=== PATIENT | female | born 1950 | race Two or more races ===

== ENCOUNTER 2017-10-19 13:22 | Outpatient (CLI) | payer OTHER ==
[~2017-10-19 13:22] MED LIST: ACTONEL5 MG PO; AVALIDE 300-12.1 TA1 PO; CALAN80 MG PO; CALCIO DEL MAR500 MG PO; GABAPENTIN100 MG PO; GLUCOPHAGE XR500 MG PO; LIPITOR20 MG PO; PLAVIX75 MG PO; SINGULAIR4 MG PO; SYNTHROID50 MCG PO; ZOCOR5 MG PO
== END 2017-10-19 17:00 | disposition home or self-care (01) ==
LOC: RAD 13:22
DX: M25.562 Pain in left knee (principal)

== ENCOUNTER 2017-11-04 10:50 | Outpatient (CLI) | payer OTHER | END 2017-11-04 10:57 | disposition home or self-care (01) | LOC: RAD 501 10:50 | DX: M25.572 Pain in left ankle and joints of left foot (principal) ==

== ENCOUNTER 2018-05-05 10:17 | Emergency (ER) | payer OTHER ==
[~2018-05-05] VITALS: Ht 180.3 cm; Wt 93.9 kg
== END 2018-05-05 15:37 | disposition home or self-care (01) ==
LOC: ER 10:17
DX: B34.9 Viral infection, unspecified (principal); E11.65 Type 2 diabetes mellitus with hyperglycemia; J11.1 Influenza due to unidentified influenza virus with other respiratory manifestations

== ENCOUNTER 2018-07-14 07:16 | Outpatient (CLI) | payer OTHER | END 2018-07-14 07:40 | disposition home or self-care (01) | LOC: NUCLEAR 07:16 | DX: I20.0 Unstable angina (principal); I11.9 Hypertensive heart disease without heart failure; E78.2 Mixed hyperlipidemia | CPT/HCPCS: 78452; 93017; A9500 ==

== ENCOUNTER 2018-10-26 09:12 | Outpatient (CLI) | payer OTHER | END 2018-10-26 12:33 | disposition home or self-care (01) | LOC: LAB 09:12 | DX: D64.89 Other specified anemias (principal); E88.89 Other specified metabolic disorders; D68.8 Other specified coagulation defects; N39.0 Urinary tract infection, site not specified; Z22.322 Carrier or suspected carrier of Methicillin resistant Staphylococcus aureus ==

== ENCOUNTER 2018-10-26 10:29 | Outpatient (CLI) | payer OTHER | END 2018-10-26 10:40 | disposition home or self-care (01) | LOC: RAD 10:29 | DX: Z76.89 Persons encountering health services in other specified circumstances (principal); M79.652 Pain in left thigh; M79.605 Pain in left leg ==

== ENCOUNTER 2018-11-09 08:50 | Outpatient (CLI) | payer OTHER ==
[~2018-11-09 08:50] MED LIST changes: -ALBUTEROL1.25 MG/3; -HUMULIN N100 UNIT/2 IJ; -XARELTO10 MG PO
[2018-11-10] MEDS ORDERED: HUMULIN N100 UNIT/2 IJ (11:21)
[2018-11-10] MEDS ORDERED: ALBUTEROL1.25 MG/3 (12:11)
== END 2018-11-09 13:01 | disposition home or self-care (01) ==
LOC: LAB 08:50
DX: E13.69 Other specified diabetes mellitus with other specified complication (principal)

== ENCOUNTER → 2018-11-09 | Outpatient (CLI) | payer OTHER ==
[~2018-11-09] MED LIST changes: +ALBUTEROL1.25 MG/3; +HUMULIN N100 UNIT/2 IJ; +XARELTO10 MG PO
== END | disposition home or self-care (01) ==
LOC: RAD 501 13:52
DX: M25.552 Pain in left hip (principal)

== ENCOUNTER 2018-11-10 10:30 | Inpatient (IN) | payer OTHER ==
[~2018-11-10] VITALS: Ht 152.4 cm; Wt 97.1 kg
[2018-11-10] MEDS ORDERED: HUMULIN N100 UNIT/2 IJ (11:21)
[2018-11-10] MEDS ORDERED: ALBUTEROL1.25 MG/3 (12:11)
[2018-11-19] MEDS ORDERED: XARELTO10 MG PO ×2 (10:10)
== END 2018-11-19 16:15 | disposition home or self-care (01) | DRG 470 ==
LOC: O/R 11-16 05:43 → SURG 11-16 05:43 → SURH 11-16 07:00 → SURG 11-16 16:43
PROVIDERS: ADMIT Orthopaedic Surgery
PROC: 0SRD0J9 Replacement of Left Knee Joint with Synthetic Substitute, Cemented, Open Approach (ICD-10-PCS; principal; 2018-11-16 07:00)
DX: M17.12 Unilateral primary osteoarthritis, left knee (principal); D62 Acute posthemorrhagic anemia; I10 Essential (primary) hypertension; E03.8 Other specified hypothyroidism; G47.33 Obstructive sleep apnea (adult) (pediatric); E66.8 Other obesity

== ENCOUNTER 2019-10-05 13:37 | Inpatient (IN) | payer OTHER ==
[~2019-10-05 13:37] MED LIST changes: +ALBUTEROL1.25 MG/3; +HUMULIN N100 UNIT/2 IJ; +XARELTO10 MG PO
[2019-10-11] MEDS ORDERED: CLOPIDOGREL BIS75 MG PO (12:37)
[2019-10-11] MEDS ORDERED: VERAPAMIL ER120 MG PO (12:37)
[2019-10-11] MEDS ORDERED: HYDROCHLOROTH12.5 M1 PO (12:37)
[2019-10-11] MEDS ORDERED: POM (MEDICAMENTO EN PO ×2 (12:37)
[2019-10-11] MEDS ORDERED: GLIMEPIRIDE4 MG PO (12:37)
[2019-10-11] MEDS ORDERED: AVAPRO300 MG PO (12:37)
[2019-10-11] MEDS ORDERED: LEVOTHYROXINE75 MCG PO (12:37)
== END 2019-10-11 14:33 | disposition home or self-care (01) | DRG 203 ==
LOC: MEDJ 13:37
PROVIDERS: ADMIT Internal Medicine
PROC: 4A033R1 Measurement of Arterial Saturation, Peripheral, Percutaneous Approach (ICD-10-PCS; principal; 2019-10-05)
PROC: 4A033R1 Measurement of Arterial Saturation, Peripheral, Percutaneous Approach (ICD-10-PCS; 2019-10-05)
PROC: 8E0ZXY6 Isolation (ICD-10-PCS; 2019-10-07)
DX: J20.0 Acute bronchitis due to Mycoplasma pneumoniae (principal); G47.39 Other sleep apnea

== ENCOUNTER 2020-03-06 12:42 | Outpatient (CLI) | payer OTHER ==
[~2020-03-06 12:42] MED LIST changes: +AVAPRO300 MG PO; +CLOPIDOGREL BIS75 MG PO; +GLIMEPIRIDE4 MG PO; +HYDROCHLOROTH12.5 M1 PO; +LEVOTHYROXINE75 MCG PO; +POM (MEDICAMENTO EN PO; +VERAPAMIL ER120 MG PO
== END 2020-03-06 12:49 | disposition home or self-care (01) ==
LOC: RAD 12:42
PROVIDERS: ATTEND Orthopaedic Surgery
DX: M25.562 Pain in left knee (principal)

== ENCOUNTER 2020-05-28 10:21 | Emergency (ER) | payer OTHER ==
[~2020-05-28] VITALS: Ht 154.9 cm; Wt 89.8 kg
[2020-05-28] MEDS ORDERED: CRESTOR10 MG PO (10:32)
[2020-05-28] MEDS ORDERED: SYNTHROID75 MCG PO (10:33)
== END 2020-05-28 15:20 | disposition home or self-care (01) ==
LOC: ER 10:21
DX: J45.998 Other asthma (principal); R06.02 Shortness of breath

== ENCOUNTER 2022-05-28 14:28 | Outpatient (CLI) | payer OTHER ==
[~2022-05-28 14:28] MED LIST changes: +CRESTOR10 MG PO; +SYNTHROID75 MCG PO
== END 2022-05-28 14:29 | disposition home or self-care (01) ==
LOC: TOM 14:28
PROVIDERS: ATTEND Internal Medicine
DX: R51.9 Headache, unspecified (principal); R42 Dizziness and giddiness

== ENCOUNTER 2022-06-05 07:59 | Outpatient (CLI) | payer OTHER | END 2022-06-05 08:17 | disposition home or self-care (01) | LOC: MRI 07:59 | PROVIDERS: ATTEND Internal Medicine | DX: I67.89 Other cerebrovascular disease (principal) | CPT/HCPCS: 70551 ==

== ENCOUNTER 2023-11-11 10:00 | Emergency (ER) | payer OTHER ==
[~2023-11-11] VITALS: Ht 152.4 cm; Wt 81.6 kg
[2023-11-11] MEDS ORDERED: METHYLPREDNISOLONE SOD SUCC 125 MG VIAL IV STA (11:31)
[2023-11-11] MEDS ORDERED: LEVALBUTEROL HCL 1.25 MG/3 ML SOLUTION IH SCH ×2 (11:45→13:15)
[2023-11-11] MEDS ORDERED: GUAIFENESIN/DEXTROMETHORPHAN 100 MG/5 ML ML PO SCH (11:45)
[2023-11-11 12:01] LABS: HEMATOCRIT 34.2 % (36.0-45.00); HEMOGLOBIN 11.6 g/dL (12.0-15.00); MEAN CELL VOLUME 87.5 fL (80.00-100.00); MEAN CORPUSCULAR HEMOGLOBIN 29.7 pg (27.00-32.0); PLATELET COUNT 208 K/uL (150-450); RED BLOOD COUNT 3.91 M/uL (4.00-6.00); RED CELL DISTRIBUTION WIDTH 13.5 % (11.5-14.5)
[2023-11-11 12:49] LABS: CALCIUM 9.5 mg/dL (8.5-10.1); CREATININE SERUM 0.64 mg/dL (0.55-1.02); GFR 91.47; POTASSIUM 4.45 mEq/L (3.5-5.1)
== END 2023-11-11 16:08 | disposition home or self-care (01) ==
LOC: ER 10:00
PROVIDERS: General Practice
DX: J45.909 Unspecified asthma, uncomplicated (principal); E78.00 Pure hypercholesterolemia, unspecified; I10 Essential (primary) hypertension; Z88.0 Allergy status to penicillin; Z88.6 Allergy status to analgesic agent; E11.9 Type 2 diabetes mellitus without complications; Z79.4 Long term (current) use of insulin
CPT/HCPCS: 94640; 96365; 99284; J2930

== ENCOUNTER 2023-11-30 20:09 | Emergency (ER) | payer OTHER ==
[~2023-11-30] VITALS: Ht 152.4 cm; Wt 72.6 kg
[2023-11-30] MEDS ORDERED: PLAVIX75 MG (20:35)
[2023-11-30] MEDS ORDERED: METFORMIN HCL500 M3 PO (20:35)
[2023-11-30] MEDS ORDERED: PROAIR RESPICL90 MCG IH (20:36)
[2023-11-30] MEDS ORDERED: JANUMET 50-1,01 EACH (20:36)
[2023-11-30] MEDS ORDERED: GUAIFENESIN/DEXTROMETHORPHAN 100 MG/5 ML ML PO ONE (21:00)
[2023-11-30] MEDS ORDERED: BUDESONIDE 0.5 MG/2 ML AMPUL.NEB IH ONE (21:00)
[2023-11-30] MEDS ORDERED: ALBUTEROL SULFATE 0.5 ML/2.5 MG SOLUTION IH SCH (21:00)
[2023-11-30 22:01] LABS: HEMATOCRIT 35.5 % (36.0-45.00); HEMOGLOBIN 12.3 g/dL (12.0-15.00); MEAN CELL VOLUME 87.1 fL (80.00-100.00); MEAN CORPUSCULAR HEMOGLOBIN 30.2 pg (27.00-32.0); MEAN CORPUSCULAR HGB CONC 34.7 g/dl (32.0-36.0); PLATELET COUNT 177 K/uL (150-450); RED BLOOD COUNT 4.08 M/uL (4.00-6.00)
[2023-11-30 22:33] LABS: ABG PH 7.401 (7.35-7.45); ABG PO2 76.2 mmHg (80-100); ABG pCO2 47.1 mmHg (35-45); BASE EXCESS 3.1 mmol/l; BICARBONATE 28.6 mmol/l (23-25); SaO2 95.2 %; Tco2 30.1 mmol/l; allen test SATISFACTORY; o2 21 %; puncture site RADIAL RIGHT
[2023-11-30] MEDS ORDERED: ZITHROMAX500 MG PO (23:09)
[2023-11-30] MEDS ORDERED: SINGULAIR10 MG PO (23:09)
[2023-11-30] MEDS ORDERED: PULMICORT1 MG/2 ML IH (23:09)
[2023-11-30] MEDS ORDERED: IPRATROPIU0.2 MG/1 M IH (23:09)
[2023-11-30] MEDS ORDERED: DIABETIC TUSSI118 M3 PO (23:09)
[2023-11-30] MEDS ORDERED: MAGNESIUM SULFATE 2,000 MG in 0.9 % SODIUM CHLORIDE 100 ML IV ONE (23:15)
[2023-11-30] MEDS ORDERED: METHYLPREDNISOLONE SOD SUCC 40 MG VIAL IV ONE (23:30)
== END 2023-12-01 01:21 | disposition home or self-care (01) ==
LOC: ER 20:10
PROVIDERS: Nurse Practitioner Family
DX: R53.81 Other malaise (principal); J45.901 Unspecified asthma with (acute) exacerbation; J45.909 Unspecified asthma, uncomplicated; Z20.822 Contact with and (suspected) exposure to COVID-19; E11.9 Type 2 diabetes mellitus without complications; Z79.84 Long term (current) use of oral hypoglycemic drugs; Z88.0 Allergy status to penicillin; Z88.5 Allergy status to narcotic agent; Z88.6 Allergy status to analgesic agent; Z91.013 Allergy to seafood

== ENCOUNTER → 2025-06-29 | Emergency (ER) | payer OTHER ==
[~2025-06-29] VITALS: Ht 154.9 cm; Wt 86.2 kg
[~2025-06-29] MED LIST changes: +8HR ARTHRITIS650 M1 PO; +DEXAMETHASONE SODIUM PHOSPHATE 4 MG/ML VIAL IV ONE; +DEXAMETHASONE SODIUM PHOSPHATE 4 MG/ML VIAL ONE; +DIABETIC TUSSI118 M3 PO; +DOXYCYCLINE HY100 M2 PO; +IPRATROPIU0.2 MG/1 M IH; +JANUMET 50-1,01 EACH; +METFORMIN HCL500 M3 PO; +PEPCID AC20 MG PO; +PLAVIX75 MG; +PROAIR RESPICL90 MCG IH; +PULMICORT1 MG/2 ML IH; +SINGULAIR10 MG PO; +ZITHROMAX500 MG PO; +ZOFRAN8 MG PO
[2025-06-29 20:45] LABS: BASO % 0.6 % (0.1-1.2); EOS # 0.21 (0.04-0.54); EOS % 3.1 % (0.7-7.0); LYMPH # 1.85 (1.18-3.74); LYMPH % 26.9 % (19.3-53.1); MEAN PLATELET VOLUME 8.60 fl (9.4-12.4); MONO # 0.66 (0.24-0.82); MONO % 9.6 % (4.7-12.5); NEUT # 4.08 (1.56-6.13); NEUT % 59.2 % (34.0-71.1); RED CELL DISTRIBUTION WIDTH 12.8 % (11.6-14.4)
[2025-06-29 20:48] LABS: ERYTHROCYTE SEDIMENTATION RATE 17 mm/hr (0-30)
[2025-06-29 21:16] LABS: INR 1.04
[2025-06-29 21:17] LABS: ALT/SGPT 29 U/L (12-78); AST/SGOT 18 U/L (15-37); BILIRUBIN TOTAL 0.58 mg/dL (0.3-1.2); BUN CREA RATIO 28 (7.0-25.0); CREATININE SERUM 0.61 mg/dL (0.55-1.02); GFR 96.14; GLOBULINA 3.9 G/DL (2.4-3.5); GLUCOSE FASTING 152 mg/dL (65-100); OSMOLALITY SERUM 288 MOSM/KG (275-295)
== END | disposition home or self-care (01) ==
LOC: ER 18:53
DX: M25.511 Pain in right shoulder (principal); Z88.0 Allergy status to penicillin; Z91.013 Allergy to seafood; Z88.6 Allergy status to analgesic agent; J45.909 Unspecified asthma, uncomplicated; E78.00 Pure hypercholesterolemia, unspecified; E11.9 Type 2 diabetes mellitus without complications; Z79.84 Long term (current) use of oral hypoglycemic drugs; R60.0 Localized edema

== ENCOUNTER 2025-06-30 15:52 | Emergency (ER) | payer OTHER ==
[~2025-06-30] VITALS: Ht 167.6 cm; Wt 81.6 kg
[~2025-06-30 15:52] MED LIST changes: -8HR ARTHRITIS650 M1 PO; -DEXAMETHASONE SODIUM PHOSPHATE 4 MG/ML VIAL IV ONE; -DEXAMETHASONE SODIUM PHOSPHATE 4 MG/ML VIAL ONE; -DOXYCYCLINE HY100 M2 PO; -PEPCID AC20 MG PO; -ZOFRAN8 MG PO
[2025-06-30] MEDS ORDERED: VANCOMYCIN HCL 1,000 MG VIAL IV SCH (17:27)
[2025-06-30] MEDS ORDERED: 0.9 % SODIUM CHLORIDE 1,000 ML IV ONE (17:30)
[2025-06-30] MEDS ORDERED: FAMOTIDINE/PF 20 MG/2 ML VIAL IV ONE (17:30)
[2025-06-30] MEDS ORDERED: ACETAMINOPHEN 500 MG GEL..CAP PO ONE ×2 (17:30→19:19)
[2025-06-30 19:14] LABS: BASO % 0.1 % (0.1-1.2); EOS # 0.05 (0.04-0.54); EOS % 0.6 % (0.7-7.0); LYMPH # 1.72 (1.18-3.74); LYMPH % 20.4 % (19.3-53.1); MEAN PLATELET VOLUME 8.70 fl (9.4-12.4); MONO # 0.58 (0.24-0.82); MONO % 6.9 % (4.7-12.5); NEUT # 6.04 (1.56-6.13); NEUT % 71.5 % (34.0-71.1); RED CELL DISTRIBUTION WIDTH 12.7 % (11.6-14.4)
[2025-06-30] MEDS ORDERED: FAMOTIDINE/PF 20 MG/2 ML VIAL ONE (19:20)
[2025-06-30] MEDS ORDERED: VANCOMYCIN HCL 1,000 MG VIAL ONE (19:20)
[2025-06-30 19:25] LABS: ERYTHROCYTE SEDIMENTATION RATE 28 mm/hr (0-30)
[2025-06-30 19:31] LABS: INR 1.05
[2025-06-30 19:35] LABS: D DIMER 1.1 MG/L
[2025-06-30 19:44] LABS: ALT/SGPT 26 U/L (12-78); AST/SGOT 21 U/L (15-37); BILIRUBIN TOTAL 0.37 mg/dL (0.3-1.2); BUN CREA RATIO 23 (7.0-25.0); CREATININE SERUM 0.99 mg/dL (0.55-1.02); GFR 54.98; GLOBULINA 4.0 G/DL (2.4-3.5)
[2025-06-30 19:45] LABS: GLUCOSE FASTING 242 mg/dL (65-100); OSMOLALITY SERUM 291 MOSM/KG (275-295)
[2025-06-30 21:04] LABS: URINE APPEARANCE Clear; URINE BILIRRUBIN Negative (NEGATIVE); URINE BLOOD Negative; URINE COLOR Yellow; URINE KETONE Negative (NEGATIVE); URINE LEUKOCYTE Small; URINE NITRATE Negative; URINE PROTEIN Trace (NEGATIVE); URINE UROBILINOGEN 0.2 E.U./dl
[2025-06-30 21:08] LABS: URINE EPITHELIAL CELLS 1.8 uL (0.0-38.8); URINE RBC 4.6 uL (0.0-20.8); URINE WBC 675.1 uL (0.0-23.2)
[2025-06-30 21:29] LABS: URINE BACTERIA > 9821.5 uL (0.0-1933); URINE CAST 0.00 uL (0.0-1.40); URINE GLUCOSE >=1000 MG/DL (NEGATIVE)
[2025-06-30] MEDS ORDERED: PEPCID AC20 MG PO (23:27)
[2025-06-30] MEDS ORDERED: 8HR ARTHRITIS650 M1 PO (23:27)
[2025-06-30] MEDS ORDERED: DOXYCYCLINE HY100 M2 PO (23:27)
== END 2025-07-01 03:08 | disposition home or self-care (01) ==
LOC: ER 15:52
DX: L03.113 Cellulitis of right upper limb (principal); E11.9 Type 2 diabetes mellitus without complications; Z79.84 Long term (current) use of oral hypoglycemic drugs; Z88.8 Allergy status to other drugs, medicaments and biological substances; Z87.09 Personal history of other diseases of the respiratory system; Z88.6 Allergy status to analgesic agent; Z88.0 Allergy status to penicillin; Z91.013 Allergy to seafood
CPT/HCPCS: 36415; 71046; 96365; 96366; 99283; J3490; J7030

== ENCOUNTER 2025-07-03 07:17 | Emergency (ER) | payer OTHER ==
[~2025-07-03] VITALS: Ht 154.9 cm; Wt 71.7 kg
[~2025-07-03 07:17] MED LIST changes: +8HR ARTHRITIS650 M1 PO; +DOXYCYCLINE HY100 M2 PO; +PEPCID AC20 MG PO
[2025-07-03] MEDS ORDERED: 0.9 % SODIUM CHLORIDE 1,000 ML IV ONE (08:45)
[2025-07-03] MEDS ORDERED: FAMOtidine 10 MG/ML (4ML VIAL) IV ONE (08:45)
[2025-07-03] MEDS ORDERED: ONDANSETRON HCL 2 MG/ML VIAL IV ONE (08:45)
[2025-07-03 09:19] LABS: BASO % 0.2 % (0.1-1.2); EOS # 0.07 (0.04-0.54); EOS % 0.9 % (0.7-7.0); LYMPH # 0.38 (1.18-3.74); LYMPH % 4.7 % (19.3-53.1); MEAN PLATELET VOLUME 8.70 fl (9.4-12.4); MONO # 0.35 (0.24-0.82); MONO % 4.4 % (4.7-12.5); NEUT # 7.15 (1.56-6.13); NEUT % 89.3 % (34.0-71.1); RED CELL DISTRIBUTION WIDTH 12.7 % (11.6-14.4)
[2025-07-03 09:36] LABS: ERYTHROCYTE SEDIMENTATION RATE 35 mm/hr (0-30)
[2025-07-03 10:08] LABS: ALT/SGPT 31.0 U/L (12-78); AST/SGOT 19.0 U/L (15-37); BILIRUBIN TOTAL 0.52 mg/dL (0.3-1.2); BUN CREA RATIO 42.0 (7.0-25.0); CREATININE SERUM 0.57 mg/dL (0.55-1.02); GFR 103.97; GLOBULINA 4.6 G/DL (2.4-3.5); GLUCOSE FASTING 177.0 mg/dL (65-100); OSMOLALITY SERUM 288.0 MOSM/KG (275-295)
[2025-07-03 10:17] LABS: URINE APPEARANCE Clear; URINE BILIRRUBIN Negative (NEGATIVE); URINE BLOOD Negative; URINE COLOR Yellow; URINE KETONE Negative (NEGATIVE); URINE LEUKOCYTE Negative; URINE NITRATE Negative; URINE PROTEIN Negative (NEGATIVE); URINE UROBILINOGEN 0.2 E.U./dl
[2025-07-03 10:22] LABS: URINE BACTERIA 13.2 uL (0.0-1933); URINE EPITHELIAL CELLS 4.2 uL (0.0-38.8); URINE WBC 2.4 uL (0.0-23.2)
[2025-07-03 10:29] LABS: URINE CAST 0.00 uL (0.0-1.40); URINE GLUCOSE >=1000 MG/DL (NEGATIVE); URINE RBC 0.7 uL (0.0-20.8)
[2025-07-03 10:39] LABS: D DIMER 1.01 MG/L
[2025-07-03 10:54] LABS: INR 1.06
[2025-07-03] MEDS ORDERED: CIPROFLOXACIN IN 5 % DEXTROSE 400 MG/200 ML PIGGYBAG IV ONE ×2 (11:15→11:33)
[2025-07-03 12:06] LABS: COVID-19 AG NEGATIVE (NEGATIVE)
[2025-07-03] MEDS ORDERED: PEPCID AC20 MG PO (14:09)
[2025-07-03] MEDS ORDERED: ZOFRAN8 MG PO (14:09)
== END 2025-07-03 16:01 | disposition home or self-care (01) ==
LOC: ER 07:18
PROVIDERS: General Practice
DX: R11.10 Vomiting, unspecified (principal); R53.1 Weakness; W18.30XA Fall on same level, unspecified, initial encounter; Z20.822 Contact with and (suspected) exposure to COVID-19; I10 Essential (primary) hypertension; E11.9 Type 2 diabetes mellitus without complications; Z79.84 Long term (current) use of oral hypoglycemic drugs; Z88.0 Allergy status to penicillin; Z88.6 Allergy status to analgesic agent; Z91.013 Allergy to seafood